=== PATIENT | female | born 1935 | race African-American/Black ===

== ENCOUNTER 2023-06-21 17:16 | Inpatient (IN) | payer OTHER ==
[2023-06-21] MEDS ORDERED: LACTATED RINGERS SOLUTION 1000 ML INFUS.BAG IV ONE (18:00)
[2023-06-21] MEDS ORDERED: morphine SULFATE 4 MG/ML VIAL IVPUSH ONE (18:20)
[2023-06-21] MEDS ORDERED: morphine CARPU-JECT 4 MG/1 ML DISP.SYRIN IVPUSH ONE (18:20)
[2023-06-21] MEDS ORDERED: morphine SULFATE 4 MG/ML VIAL ONE ×2 (18:22→19:12)
[2023-06-21 18:29] VITALS: BMI 25.7
[2023-06-21 19:03] LABS: BASO % 0.2 % (0-2.0); HEMATOCRIT 43.5 % (32.4-45.2); HEMOGLOBIN 14.3 GM/dL (10.7-15.3); LYMPH % 3.6 % (8-40); MCH 28.6 pg (25.7-33.7); MCHC 32.8 g/dl (32.0-36.0); MEAN CELL VOLUME 87.3 fl (80-96); MEAN PLT VOLUME 10.4 fl (7.5-11.1); MONO % 10.2 % (3.8-10.2); PLATELET COUNT 340 10^3/uL (134-434); RBC 4.98 M/mm3 (3.60-5.2); RDW 14.2 % (11.6-15.6); WHITE BLOOD COUNT 14.7 K/mm3 (4.0-10.0)
[2023-06-21 19:36] LABS: ACTIVATED PTT 31.8 SECONDS (25.2-36.5); INR 1.1 (0.83-1.09); POTASSIUM 4.5 mmol/L (3.5-5.1); PROTHROMBIN TIME (PATIENT) 12.8 SEC (9.7-13.0)
[2023-06-21 19:38] LABS: CALCIUM 9.5 mg/dL (8.5-10.1)
[2023-06-21 19:39] LABS: ALBUMIN 3.4 g/dl (3.4-5.0); BLOOD UREA NITROGEN 37.3 mg/dL (7-18)
[2023-06-21 19:42] LABS: CREATININE 1.2 mg/dL (0.55-1.3)
[2023-06-21 19:44] LABS: BILIRUBIN,TOTAL 1.1 mg/dL (0.2-1); TOT PROT 7.4 g/dl (6.4-8.2)
[2023-06-22 00:40] LABS: EPI CELLS 17 /uL (0-25.1); HYALINE CASTS 1 /uL (0-3.1); URINE APPEARANCE CLOUDY; URINE BACTERIA 293 /uL (0-1359); URINE BILIRUBIN 2+ (NEGATIVE); URINE COLOR DK YELLOW; URINE GLUCOSE (UA) NEGATIVE (NEGATIVE); URINE KETONE 1+ (NEGATIVE); URINE LEUK ESTERASE NEGATIVE (NEGATIVE); URINE NITRITE NEGATIVE (NEGATIVE); URINE PROTEIN 1+ (NEGATIVE); URINE RBC 14 /uL (0-23.9); URINE WBC 23 /uL (0-25.8)
[2023-06-22] MEDS ORDERED: ACETAMINOPHEN 1000 MG/100 ML BAG IVPB PRN (00:56)
[2023-06-22] MEDS ORDERED: LACTATED RINGERS SOLUTION 1,000 ML IV SCH ×2 (01:00→02:54)
[2023-06-22] MEDS: REMDESIVIR 200 MG in SODIUM CHLORIDE 250 ML IVPB ONE ×2 (02:39→02:43)
[2023-06-22] MEDS ORDERED: CEFTRIAXONE 1 GM in DEXTROSE 5%-WATER - 50 ML IVPB SCH (03:45)
[2023-06-22 09:02] LABS: HEMATOCRIT 37.5 % (32.4-45.2); HEMOGLOBIN 12.2 GM/dL (10.7-15.3); MCH 28.5 pg (25.7-33.7); MCHC 32.7 g/dl (32.0-36.0); MEAN CELL VOLUME 87.1 fl (80-96); MEAN PLT VOLUME 9.7 fl (7.5-11.1); PLATELET COUNT 327 10^3/uL (134-434); RDW 14.3 % (11.6-15.6); WHITE BLOOD COUNT 11.1 K/mm3 (4.0-10.0)
[2023-06-22 09:23] LABS: POTASSIUM 4.5 mmol/L (3.5-5.1)
[2023-06-22 09:25] LABS: BLOOD UREA NITROGEN 43.4 mg/dL (7-18); CALCIUM 9.4 mg/dL (8.5-10.1)
[2023-06-22 09:26] LABS: MAGNESIUM 2.2 mg/dL (1.8-2.4)
[2023-06-22 09:28] LABS: BILIRUBIN,DIRECT 0.4 mg/dL (0.0-0.2); CREATININE 1.4 mg/dL (0.55-1.3); PHOSPHOROUS 3.9 mg/dL (2.5-4.9)
[2023-06-22 09:30] LABS: BILIRUBIN,TOTAL 0.9 mg/dL (0.2-1); TOT PROT 6.5 g/dl (6.4-8.2)
[2023-06-22] MEDS ORDERED: PROPOFOL 20 ML ONE (12:07)
[2023-06-22] MEDS ORDERED: SUCCINYLCHOLINE CHLORIDE 200 MG/10 ML SYRINGE ONE (12:11)
[2023-06-22] MEDS ORDERED: ENOXAPARIN NA (PORCINE) 40 MG/0.4 ML DISP.SYRIN SQ ONE (15:03)
[2023-06-22] MEDS: SODIUM CHLORIDE 1,000 ML IV SCH (16:59)
[2023-06-23] MEDS: SODIUM CHLORIDE 1,000 ML IV SCH (04:45)
[2023-06-23 09:13] LABS: BASO % 0.7 % (0-2.0); EOS % 0.5 % (0-4.5); HEMATOCRIT 33.6 % (32.4-45.2); LYMPH % 8.4 % (8-40); MCH 28.7 pg (25.7-33.7); MCHC 32.6 g/dl (32.0-36.0); MEAN CELL VOLUME 87.9 fl (80-96); MONO % 11.7 % (3.8-10.2); NEUT % 78.7 % (42.8-82.8); PLATELET COUNT 236 10^3/uL (134-434); RBC 3.82 M/mm3 (3.60-5.2); RDW 14.3 % (11.6-15.6); WHITE BLOOD COUNT 8.9 K/mm3 (4.0-10.0)
[2023-06-23 09:30] LABS: POTASSIUM 3.8 mmol/L (3.5-5.1)
[2023-06-23 09:43] LABS: ALBUMIN 2.6 g/dl (3.4-5.0); BLOOD UREA NITROGEN 45.4 mg/dL (7-18); CALCIUM 8.7 mg/dL (8.5-10.1); MAGNESIUM 2.4 mg/dL (1.8-2.4)
[2023-06-23 09:44] LABS: CREATININE 1.3 mg/dL (0.55-1.3)
[2023-06-23 09:45] LABS: PHOSPHOROUS 3.7 mg/dL (2.5-4.9)
[2023-06-23 09:46] LABS: BILIRUBIN,TOTAL 1.1 mg/dL (0.2-1); TOT PROT 5.7 g/dl (6.4-8.2)
[2023-06-23] MEDS ORDERED: REMDESIVIR 100 MG in SODIUM CHLORIDE 250 ML IVPB SCH (10:00)
[2023-06-23] MEDS ORDERED: PROPOFOL 20 ML ONE (11:55)
[2023-06-23] MEDS ORDERED: MIDAZOLAM HCL 2 MG/2 ML SINGLE DOSE VIAL ONE (12:25)
[2023-06-23] MEDS ORDERED: ONDANSETRON 4 MG/2 ML VIAL IVPUSH PRN ×2 (12:30→14:54)
[2023-06-23] MEDS ORDERED: ACETAMINOPHEN 325 MG TABLET (FP) PO PRN ×2 (12:30→15:36)
[2023-06-23] MEDS ORDERED: LACTATED RINGERS SOLUTION 1,000 ML IV SCH ×3 (12:30→15:36)
[2023-06-23] MEDS ORDERED: ONDANSETRON 4 MG/2 ML VIAL ONE (13:13)
[2023-06-23] MEDS ORDERED: DEXAMETHASONE SOD PHOSPHATE 4 MG/1 ML VIAL ONE (13:13)
[2023-06-23] MEDS ORDERED: ceFAZolin SODIUM 1 GM VIAL ONE ×2 (13:13)
[2023-06-23] MEDS ORDERED: ceFAZolin SODIUM 1 GM VIAL IVPB ONE (13:15)
[2023-06-23] MEDS ORDERED: MAG HYDROX/AL HYDROX/SIMETH 30 ML UNIT-DOSE CUP PO PRN (14:54)
[2023-06-23] MEDS ORDERED: SODIUM CHLORIDE 1,000 ML IV SCH (15:36)
[2023-06-23] MEDS: GABAPENTIN 300 MG CAPSULE PO SCH (21:12)
[2023-06-23] MEDS: SENNOSIDES/DOCUSATE COMBO (SENNA PLUS) TABLET (UD) PO SCH (21:12)
[2023-06-23] MEDS: CEFAZOLIN SODIUM 2 GM in DEXTROSE 5%-WATER 100 ML IVPB SCH (21:12)
[2023-06-24] MEDS: CEFAZOLIN SODIUM 2 GM in DEXTROSE 5%-WATER 100 ML IVPB SCH ×2 (05:30→14:29)
[2023-06-24 05:34] VITALS: RESP 18
[2023-06-24 09:59] LABS: BASO % 0.1 % (0-2.0); EOS % 0.1 % (0-4.5); HEMATOCRIT 32.6 % (32.4-45.2); HEMOGLOBIN 10.5 GM/dL (10.7-15.3); LYMPH % 4.5 % (8-40); MCH 28.7 pg (25.7-33.7); MCHC 32.3 g/dl (32.0-36.0); MEAN CELL VOLUME 88.8 fl (80-96); MEAN PLT VOLUME 9.5 fl (7.5-11.1); MONO % 9.7 % (3.8-10.2); NEUT % 85.6 % (42.8-82.8); PLATELET COUNT 280 10^3/uL (134-434); RBC 3.67 M/mm3 (3.60-5.2); RDW 14.1 % (11.6-15.6); WHITE BLOOD COUNT 12.5 K/mm3 (4.0-10.0)
[2023-06-24] MEDS ORDERED: CEFAZOLIN SODIUM 2 GM VIAL ONE (10:10)
[2023-06-24 10:12] LABS: POTASSIUM 4.3 mmol/L (3.5-5.1)
[2023-06-24] MEDS: SENNOSIDES/DOCUSATE COMBO (SENNA PLUS) TABLET (UD) PO SCH ×2 (10:15→22:37)
[2023-06-24 10:17] LABS: BLOOD UREA NITROGEN 35.9 mg/dL (7-18)
[2023-06-24] MEDS: ENOXAPARIN NA (PORCINE) 30 MG/0.3 ML DISP.SYRIN SQ SCH (10:17)
[2023-06-24 10:18] LABS: ALBUMIN 2.4 g/dl (3.4-5.0)
[2023-06-24] MEDS: GABAPENTIN 300 MG CAPSULE PO SCH ×2 (10:18→22:37)
[2023-06-24] MEDS: MULTIVITAMINS (DAILY MVI) TABLET (FP) PO SCH (10:18)
[2023-06-24] MEDS: PANTOPRAZOLE 40 MG TABLET PO SCH (10:18)
[2023-06-24 10:19] LABS: CALCIUM 8.8 mg/dL (8.5-10.1)
[2023-06-24 10:23] LABS: CREATININE 1.1 mg/dL (0.55-1.3)
[2023-06-24 10:24] LABS: BILIRUBIN,TOTAL 0.6 mg/dL (0.2-1); TOT PROT 5.3 g/dl (6.4-8.2)
[2023-06-25] MEDS: PANTOPRAZOLE 40 MG TABLET PO SCH (10:09)
[2023-06-25] MEDS: GABAPENTIN 300 MG CAPSULE PO SCH ×2 (10:09→22:43)
[2023-06-25] MEDS: SENNOSIDES/DOCUSATE COMBO (SENNA PLUS) TABLET (UD) PO SCH ×2 (10:09→22:43)
[2023-06-25] MEDS: MULTIVITAMINS (DAILY MVI) TABLET (FP) PO SCH (10:09)
[2023-06-25] MEDS: ENOXAPARIN NA (PORCINE) 30 MG/0.3 ML DISP.SYRIN SQ SCH (10:10)
[2023-06-25 10:32] LABS: BASO % 0.7 % (0-2.0); EOS % 2.7 % (0-4.5); HEMATOCRIT 30.1 % (32.4-45.2); HEMOGLOBIN 9.9 GM/dL (10.7-15.3); MCH 28.7 pg (25.7-33.7); MCHC 33.1 g/dl (32.0-36.0); MEAN CELL VOLUME 86.9 fl (80-96); MEAN PLT VOLUME 9.8 fl (7.5-11.1); MONO % 12.2 % (3.8-10.2); NEUT % 72.4 % (42.8-82.8); PLATELET COUNT 247 10^3/uL (134-434); POTASSIUM 4.1 mmol/L (3.5-5.1); RBC 3.46 M/mm3 (3.60-5.2); RDW 14.2 % (11.6-15.6); WHITE BLOOD COUNT 8.9 K/mm3 (4.0-10.0)
[2023-06-25 10:34] LABS: ALBUMIN 2.1 g/dl (3.4-5.0); BLOOD UREA NITROGEN 30.8 mg/dL (7-18)
[2023-06-25 10:38] LABS: CALCIUM 7.9 mg/dL (8.5-10.1); MAGNESIUM 2.1 mg/dL (1.8-2.4)
[2023-06-25 10:39] LABS: BILIRUBIN,TOTAL 0.4 mg/dL (0.2-1); TOT PROT 4.9 g/dl (6.4-8.2)
[2023-06-25 10:43] LABS: PHOSPHOROUS 2.4 mg/dL (2.5-4.9)
[2023-06-26] MEDS: GABAPENTIN 300 MG CAPSULE PO SCH (11:00)
[2023-06-26] MEDS: PANTOPRAZOLE 40 MG TABLET PO SCH (11:00)
[2023-06-26] MEDS: SENNOSIDES/DOCUSATE COMBO (SENNA PLUS) TABLET (UD) PO SCH ×2 (11:00→22:57)
[2023-06-26] MEDS: MULTIVITAMINS (DAILY MVI) TABLET (FP) PO SCH (11:00)
[2023-06-26] MEDS: ENOXAPARIN NA (PORCINE) 30 MG/0.3 ML DISP.SYRIN SQ SCH (11:04)
[2023-06-26] MEDS ORDERED: BISACODYL 5 MG TABLET.DR (FP) PO ONE (18:46)
[2023-06-26] MEDS: ACETAMINOPHEN 325 MG TABLET (FP) PO SCH (18:54)
[2023-06-27] MEDS: ACETAMINOPHEN 325 MG TABLET (FP) PO SCH ×2 (02:42→11:29)
[2023-06-27] MEDS ORDERED: SENNOSIDES 8.6MG TABLET (FP) PO ONE (05:27)
[2023-06-27] MEDS ORDERED: POLYETHYLENE GLYCOL (HEALTHYLAX) 3350 17 GM PACKET PO ONE (05:30)
[2023-06-27] MEDS: PANTOPRAZOLE 40 MG TABLET PO SCH (09:29)
[2023-06-27] MEDS: MULTIVITAMINS (DAILY MVI) TABLET (FP) PO SCH (09:29)
[2023-06-27] MEDS: ENOXAPARIN NA (PORCINE) 30 MG/0.3 ML DISP.SYRIN SQ SCH (09:29)
[2023-06-27] MEDS: SENNOSIDES/DOCUSATE COMBO (SENNA PLUS) TABLET (UD) PO SCH (09:29)
[2023-06-27 10:12] LABS: HEMATOCRIT 32.6 % (32.4-45.2); HEMOGLOBIN 10.8 GM/dL (10.7-15.3); MCH 29.2 pg (25.7-33.7); MCHC 33.3 g/dl (32.0-36.0); MEAN CELL VOLUME 87.7 fl (80-96); MEAN PLT VOLUME 9.3 fl (7.5-11.1); PLATELET COUNT 283 10^3/uL (134-434); RBC 3.72 M/mm3 (3.60-5.2); RDW 14.4 % (11.6-15.6); WHITE BLOOD COUNT 8.1 K/mm3 (4.0-10.0)
[2023-06-27 11:02] LABS: ALBUMIN 2.2 g/dl (3.4-5.0); BLOOD UREA NITROGEN 18.4 mg/dL (7-18); CREATININE 0.8 mg/dL (0.55-1.3)
[2023-06-27 11:03] LABS: BILIRUBIN,TOTAL 0.6 mg/dL (0.2-1); TOT PROT 5.2 g/dl (6.4-8.2)
[2023-06-27 11:04] LABS: CALCIUM 8.3 mg/dL (8.5-10.1); PHOSPHOROUS 2.3 mg/dL (2.5-4.9)
[2023-06-27 11:06] LABS: MAGNESIUM 2.1 mg/dL (1.8-2.4)
[2023-06-27 15:34] VITALS: BP 151/76; PULSE 87; TEMP 98.6
== END 2023-06-27 17:05 | DRG 480 ==
LOC: EDBD 17:16 → JER 17:16 → JERBED 22:15 → J6S 06-22 01:04 → OBSVTOIN 06-24 10:07 → J5S 06-26 20:27
PROVIDERS: ADMIT Internal Medicine; ATTEND Internal Medicine
PROC: 0QS734Z Reposition Left Upper Femur with Internal Fixation Device, Percutaneous Approach (ICD-10-PCS; principal; 2023-06-23 12:00)
DX: S72.142A Displaced intertrochanteric fracture of left femur, initial encounter for closed fracture (principal); U07.1 COVID-19; M62.82 Rhabdomyolysis; D72.829 Elevated white blood cell count, unspecified; D64.9 Anemia, unspecified; W19.XXXA Unspecified fall, initial encounter; Y93.9 Activity, unspecified; Y92.89 Other specified places as the place of occurrence of the external cause; Y99.9 Unspecified external cause status
CPT/HCPCS: 0241U-QW; 36415; 70450-TC; 71045-TC-FY; 71260-TC; 72125-TC; 72128-TC; 72131-TC; 72170-TC-FY; 73502-TC-LT-FY; 73552-TC-LT-FY; 73560-TC-LT-FY; 74177-TC; 76000-TC-FY; 80048; 80053; 80076; 81003; 82550; 82553; 82962; 83605; 83735; 84100; 84484; 85025; 85027; 85610; 85730; 86140; 86850; 86900; 86901; 87086; 93005; 93010; 94010; 94760; 97116-GP; 97162-GP; 99285-25; C1713; G0378; J0248; Q9967

== ENCOUNTER 2023-07-28 16:07 | Emergency (ER) | payer OTHER ==
[2023-07-28 16:45] VITALS: TEMP 97.8; BMI 28.4
[2023-07-28 21:23] VITALS: BP 165/72; PULSE 83; RESP 16
[2023-07-28 21:26] LABS: URINE APPEARANCE CLEAR; URINE BILIRUBIN NEGATIVE (NEGATIVE); URINE COLOR YELLOW; URINE GLUCOSE (UA) NEGATIVE (NEGATIVE); URINE KETONE NEGATIVE (NEGATIVE); URINE LEUK ESTERASE NEGATIVE (NEGATIVE); URINE NITRITE NEGATIVE (NEGATIVE); URINE PROTEIN NEGATIVE (NEGATIVE); URINE UROBILINOGEN 0.2 mg/dL (0.2-1.0)
== END 2023-07-29 02:30 ==
LOC: JER 16:07
DX: R45.1 Restlessness and agitation (principal); R41.0 Disorientation, unspecified
CPT/HCPCS: 81003; 87086; 87186; 99283-25